=== PATIENT | male | born 1970 | race Caucasian/White ===

== ENCOUNTER 2016-09-25 13:59 | Emergency (ER) | payer OTHER ==
[~2016-09-25] VITALS: Ht 170.2 cm; Wt 93.4 kg
[2016-09-25 16:25] VITALS: BP 120/90
== END 2016-09-25 16:25 | disposition home or self-care (01) ==
LOC: ED 13:59
DX: S06.9X1A Unspecified intracranial injury with loss of consciousness of 30 minutes or less, initial encounter (principal); L73.9 Follicular disorder, unspecified; M54.2 Cervicalgia; F17.210 Nicotine dependence, cigarettes, uncomplicated; F10.20 Alcohol dependence, uncomplicated; W18.2XXA Fall in (into) shower or empty bathtub, initial encounter; Y93.E1 Activity, personal bathing and showering; Y99.8 Other external cause status; Y92.89 Other specified places as the place of occurrence of the external cause

== ENCOUNTER 2017-01-31 10:08 | Emergency (ER) | payer OTHER ==
[2017-01-31 12:03] VITALS: BP 125/70
== END 2017-01-31 12:03 | disposition home or self-care (01) ==
LOC: ED 10:08
DX: J40 Bronchitis, not specified as acute or chronic (principal); R07.89 Other chest pain
CPT/HCPCS: Q0092

== ENCOUNTER 2017-12-20 09:25 | Emergency (ER) | payer OTHER ==
[~2017-12-20] VITALS: Ht 167.6 cm; Wt 95.7 kg
[2017-12-20 09:32] VITALS: BP 92/50; Ht 167.6 cm; Wt 95.7 kg
== END 2017-12-20 12:44 | disposition home or self-care (01) ==
LOC: ED 09:25
DX: J06.9 Acute upper respiratory infection, unspecified (principal)
CPT/HCPCS: J7512; J7613; J7644